=== PATIENT | male | born 1980 | race Caucasian/White ===

== ENCOUNTER 2017-04-23 22:12 | Emergency (ER) | payer OTHER ==
[2017-04-23] MEDS ORDERED: HYDROmorphone 1 MG/ML Syringe IVPUSH ONE (22:29)
[2017-04-23] MEDS ORDERED: Ondansetron 4 MG/2 ML SDV IVPUSH ONE (22:29)
[2017-04-23] MEDS ORDERED: Sodium Chloride 0.9% 10 ML Syringe FLUSH PRN (22:30)
[2017-04-23] MEDS ORDERED: Diphtheria,Pertussis(Acell),Tetanus Vaccine 0.5 ML SDV IM ONE (22:33)
--- NOTE | 2017-04-23 22:40 | EDM.PDOC ---
ED HPI GENERAL MEDICAL PROBLEM - General Chief Complaint: Trauma Stated Complaint: INJURY TO MOUTH Time Seen by Provider: 04/23/17 22:20 Source of Information: Reports: Patient History Limitations: Reports: Physical Impairment (injury to mouth) - History of Present Illness INITIAL COMMENTS - FREE TEXT/NARRATIVE: 36-year-old male presents for evaluation and treatment of injury to the mouth. Injury occurred about 2 hours prior to arrival in the ER. Patient was up working in [place]. Attempting to lift a heavy load. A hook came loose and struck the patient in the mouth. He is reporting extensive pain to the mouth and the right side of the jaw. Reports multiple missing teeth. He has active bleeding. No treatments prior to arrival in the ER. No loss of consciousness, neck pain or headaches. No trauma to the eyes. Patient was wearing safety glasses. Does not recall last tetanus. trauma alert called upon arrival in the ER. Oral/Mouth Pain Score (Numeric/FACES): 3 - Related Data Allergies Allergy/AdvReac Type Severity Reaction Status Date / Time No Known Allergies Allergy Verified 04/23/17 22:24 Home Meds: Home Meds . [No Known Home Meds] 04/23/17 [History] Past Medical History - Past Health History Medical/Surgical History: Denies Medical/Surgical History Social & Family History - Family History Cardiac: Reports: CAD - Tobacco Use Smoking Status *Q: Never Smoker Second Hand Smoke Exposure: No - Caffeine Use Caffeine Use: Reports: None - Recreational Drug Use Recreational Drug Use: No Review of Systems - Review of Systems Review Of Systems: See Below Eyes: Reports: No Symptoms (no injury, wearing safety galsses) Nose: Reports: Epistaxis Mouth/Throat: Reports: Bleeding, Loose Teeth (multiple missing teeth to the right maxilla #6-8 aand #10, #24 and 25 are loose), Other (facial swelling) Respiratory: Denies: Shortness of Breath Cardiovascular: Denies: Chest Pain Musculoskeletal: Denies: Neck Pain Neurological: Denies: Headache, Syncope ED EXAM, GENERAL - Physical Exam Exam: See Below Exam Limited By: No Limitations General Appearance: Alert, WD/WN, Moderate Distress Eye Exam: Bilateral Eye: EOMI, Normal Inspection, PERRL Ears: Normal External Exam, Normal Canal, Hearing Grossly Normal, Normal TMs Nose: Other (dried blood, nasal tenderness) Throat/Mouth: Other (swelling to the righ mandible and lips; right facial tenderness to palpation to the right maxillary sinus; multiple missing teeth to the right maxilla #6-8 aand #10, #24 and 25 are loose) Head: Facial Swelling, Facial Tenderness, Sinus Tenderness Neck: Normal Inspection, Supple, Non-Tender, Full Range of Motion Respiratory/Chest: No Respiratory Distress, Lungs Clear, Normal Breath Sounds Cardiovascular: Normal Peripheral Pulses, Regular Rate, Rhythm, No Murmur Neurological: Alert, Oriented, Normal Cognition Psychiatric: Normal Affect, Normal Mood Skin Exam: Warm, Dry, Normal Color Course - Vital Signs Last Recorded V/S: Last Vital Signs Temp 36.2 C 04/23/17 23:13 Pulse 70 04/23/17 23:13 Resp 16 04/23/17 23:13 BP 132/77 04/23/17 23:13 Pulse Ox 95 04/23/17 23:13 - Orders/Labs/Meds Orders: Active Orders 24 hr Category Date Time Status Peripheral IV Care [RC] . DIRECTED Care 04/23/17 22:30 Active Vaccines to be Administered [RC] PER UNIT ROUTINE Care 04/23/17 22:33 Active Cervical Spine Comp wo Cont [MR] Stat Exams 04/24/17 00:26 Ordered Max Facial Sinus wo Cont [CT] Stat Exams 04/23/17 22:29 Taken Sodium Chloride 0.9% [Saline Flush] Med 04/23/17 22:30 Active 10 ml FLUSH ASDIRECTED PRN Peripheral IV Insertion Adult [OM.PC] Routine Oth 04/23/17 22:30 Ordered Medication Orders Sodium Chloride (Saline Flush) 10 ml FLUSH ASDIRECTED PRN PRN Reason: Keep Vein Open Last Admin: 04/23/17 22:38 Dose: 10 ml Labs: Laboratory Tests 04/23/17 Range/Units 22:33 WBC 8.87 (4.23-9.07) K/mm3 RBC 4.95 (4.63-6.08) M/mm3 Hgb 15.1 (13.7-17.5) gm/L Hct 43.9 (40.1-51.0) % MCV 88.7 (79.0-92.2) fl MCH 30.5 (25.7-32.2) pg MCHC 34.4 (32.2-35.5) g/dl RDW Std Deviation 39.4 (35.1-43.9) fL Plt Count 214 (163-337) K/mm3 MPV 9.2 L (9.4-12.3) fl Neut % (Auto) 84.4 H (34.0-67.9) % Lymph % (Auto) 8.8 L (21.8-53.1) % Ness % (Auto) 5.6 (5.3-12.2) % Eos % (Auto) 0.9 (0.8-7.0) Baso % (Auto) 0.2 (0.1-1.2) % Neut # (Auto) 7.48 H (1.78-5.38) K/mm3 Lymph # (Auto) 0.78 L (1.32-3.57) K/mm3 Ness # (Auto) 0.50 (0.30-0.82) K/mm3 Eos # (Auto) 0.08 (0.04-0.54) K/mm3 Baso # (Auto) 0.02 (0.01-0.08) K/mm3 Manual Slide Review Abnormal smear Meds: Medications Generic Name Dose Route Start Last Admin Trade Name Freq PRN Reason Stop Dose Admin Sodium Chloride 10 ml 04/23/17 22:30 04/23/17 22:38 Saline Flush FLUSH 10 ml ASDIRECTED PRN Administration Keep Vein Open Discontinued Medications Generic Name Dose Route Start Last Admin Trade Name Freq PRN Reason Stop Dose Admin Diphtheria/Tetanus/Acell Pertussis 0.5 ml 04/23/17 22:33 04/23/17 22:43 Adacel IM 04/23/17 22:34 0.5 ml .ONCE ONE Administration Hydromorphone HCl 1 mg 04/23/17 22:29 04/23/17 22:37 Dilaudid IVPUSH 04/23/17 22:30 1 mg ONETIME ONE Administration Cefazolin Sodium/Dextrose 2 gm 50 mls @ 100 mls/hr 04/23/17 23:30 04/23/17 23 :41 / Premix IV 04/23/17 23:59 100 mls/hr ONETIME ONE Administration Ondansetron HCl 4 mg 04/23/17 22:29 04/23/17 22:37 Zofran IVPUSH 04/23/17 22:30 4 mg ONETIME ONE Administration - Radiology Interpretation Free Text/Narrative:: CT of the maxillofacial sinuses impression per [facility]: Comminuted displaced fractures involving the anterior and right maxillary alveolus. Minimally displaced fracture through the base of the anterior maxillary spine. Comminuted displaced fractures of the anterior and lateral beltre of the right maxillary sinus. Rate facial soft tissue swelling with soft tissue emphysema. No focal intraorbital lesion. Extensive opacification of the right maxillary sinus. Mild mucosal thickening of the remainder of the paranasal sinuses. 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 - Re-Assessments/Exams Free Text/Narrative Re-Assessment/Exam: 04/23/17 22:40 Dr. Guevara has seen the patient as this is a trauma aler. Feels we should skip the CT and send to [place] where he can have a CT done there. senior safety support manager elects to go to [facility]. 04/23/17 22:03 Spoke with [facility] on-call they would like the CT prior to transport. 04/24/17 00:33 Patient and senior safety support manager have now decided against [facility] would like to go to [facility]. I spoke with Dr. Arnold, plastic surgeon and Dr. Perrin, ER physician [facility] in [place]. Dr. Perrin was able to view the CT. Recommendation from [place] includes pain control, IV antibiotics and close follow-up. He may follow up with either Dr. Arnold or their musculofascial surgery. I discussed this with the patient and safety officers. They do not feel comfortable going home. Concerns over airway. He continues to have some mild bleeding from the mouth as he is spitting up some blood is not actively hemorrhaging. I called back Dr. Perrin at [facility] in [place]. He agrees to accept the patient. asks that I share with the patient that he could very well could be discharged from the ER in [place] after evaluation. I shared this with the patient the senior safety support manager. They understand. Plan will be to transport to [facility] in [place]. He'll be seen in the ER by Dr. Perrin. Patient to get a cervical spine CT prior to transfer. Dr. Arnold recommended CT of the cervical spine as 10% of facial fractures have cervical spine injuries. Departure - Departure Time of Disposition: 01:08 Disposition: DC/Tfer to Acute Hospital 02 Condition: Fair Clinical Impression: Facial trauma Qualifiers: Encounter type: initial encounter Qualified Code(s): S09.93XA - Unspecified injury of face, initial encounter Maxillary fracture Qualifiers: Encounter type: initial encounter Fracture type: open Laterality: right Qualified Code(s): S02.40CB - Maxillary fracture, right side, initial encounter for open fracture Maxillary sinus fracture Qualifiers: Encounter type: initial encounter Fracture type: open Qualified Code(s): S02.401B - Maxillary fracture, unspecified side, initial encounter for open fracture Dental trauma Qualifiers: Encounter type: initial encounter Qualified Code(s): S09.93XA - Unspecified injury of face, initial encounter - Discharge Information Forms: ED Department Discharge Additional Instructions: Plan will be to go to [facility]. Patient will be seen to the ER. By ground ambulance. Dr. Perrin accepting. - My Orders Last 24 Hours: My Active Orders 04/23/17 22:29 Max Facial Sinus wo Cont [CT] Stat 04/23/17 22:30 Peripheral IV Care [RC] . DIRECTED Sodium Chloride 0.9% [Saline Flush] 10 ml FLUSH ASDIRECTED PRN Peripheral IV Insertion Adult [OM.PC] Routine 04/23/17 22:33 Vaccines to be Administered [RC] PER UNIT ROUTINE 04/24/17 00:26 Cervical Spine Comp wo Cont [MR] Stat - Assessment/Plan Last 24 Hours: My Active Orders 04/23/17 22:29 Max Facial Sinus wo Cont [CT] Stat 04/23/17 22:30 Peripheral IV Care [RC] . DIRECTED Sodium Chloride 0.9% [Saline Flush] 10 ml FLUSH ASDIRECTED PRN Peripheral IV Insertion Adult [OM.PC] Routine 04/23/17 22:33 Vaccines to be Administered [RC] PER UNIT ROUTINE 04/24/17 00:26 Cervical Spine Comp wo Cont [MR] Stat
[2017-04-23] MEDS ORDERED: ceFAZolin 2 GM in Premix Bag 1 BAG IV ONE (23:30)
[2017-04-24] MEDS ORDERED: Sodium Chloride 0.9% 1,000 ML ONE (01:19)
--- NOTE | 2017-04-24 07:26 | CT ---
CT facial bones Technique: Multiple axial sections were obtained through the facial bones. Reconstructed coronal and sagittal images were obtained. Comparison: No previous study. Findings: Fractures are identified within the right maxillary sinus showing multiple comminuted fragments involving both anterior and posterolateral beltre. Fracture extends into the right maxilla with displacement of the right side of the hard palate. Displacement of the maxilla is up to 9 mm. Soft tissue air is noted from the maxillary fracture. Soft tissue density within the right maxillary sinus is seen most likely due to hematoma. Chronic appearing mucosal thickening is noted within the ethmoid and left maxillary sinuses as well as sphenoid sinus. Orbital floors are intact. No orbital fracture is seen. Mandible appears intact. Impression: 1. Comminuted and mildly displaced fractures within the right maxillary sinus extending to the floor of the sinus into the maxilla and hard palate. 2. Other incidental findings. Diagnostic code #5 Agree with preliminary report issued by [employer] ([facility] preliminary report dictated on 04/24/17, 12:21 AM Central Time)
--- NOTE | 2017-04-24 07:26 | CT ---
CT cervical spine Technique: Multiple axial sections were obtained from above C1 inferiorly to the bottom of T1. Reconstructed sagittal and coronal images were reviewed. Comparison: No prior CT imaging. Findings: Slight anterior spurring is noted at C5-C6. Calcification is noted anterior to the disc at C5-C6 which is degenerative. Minimal anterior spurring is noted at C6-C7. Calcifications are noted within the ligamentum nucha which are chronic. Vertebral body heights and disc spaces are maintained. Vertebral bodies and posterior arches are intact. No fracture is seen. No abnormal subluxation is seen. Mild kyphosis is seen most likely positional. No bony central or bony neural foraminal stenosis is seen. Impression: 1. Mild degenerative change. Nothing acute is seen on CT study of the cervical spine. Diagnostic code #2 I agree with preliminary report issued by [employer] ([facility] preliminary report dictated on 04/24/17, 2:21 AM Central Time)
== END 2017-04-24 01:13 ==
LOC: JD.ED 22:12
DX: S02.401B Maxillary fracture, unspecified side, initial encounter for open fracture (principal); S02.40CB Maxillary fracture, right side, initial encounter for open fracture; S09.8XXA Other specified injuries of head, initial encounter; W22.8XXA Striking against or struck by other objects, initial encounter; Y93.89 Activity, other specified; Z23 Encounter for immunization; Y99.0 Civilian activity done for income or pay
CPT/HCPCS: 36415; 70486; 70486-26; 72125; 72125-26; 85025; 90471; 90715; 96365; 96375; 99285-25; J0690; J1170; J2405; J7050